=== PATIENT | female | born 1950 | race Caucasian/White ===

== ENCOUNTER → 2020-06-18 | Outpatient (CLI) | payer OTHER ==
[~2020-06-18] MED LIST: ASA81BEC PO; LOPRESSOR50 MG PO; TOPROL XL25 MG PO; TORSEMIDE20 MG PO; VITAMIN D325 MC5 PO; XARELTO20 MG PO
== END ==
LOC: SJCVCIMAG 09:40
PROVIDERS: ATTEND Internal Medicine Cardiovascular Disease
DX: R94.31 Abnormal electrocardiogram [ECG] [EKG] (principal); I08.1 Rheumatic disorders of both mitral and tricuspid valves; R00.0 Tachycardia, unspecified; I48.91 Unspecified atrial fibrillation; E78.5 Hyperlipidemia, unspecified; I42.9 Cardiomyopathy, unspecified; I10 Essential (primary) hypertension; Z79.82 Long term (current) use of aspirin; Z79.899 Other long term (current) drug therapy; E66.01 Morbid (severe) obesity due to excess calories

== ENCOUNTER → 2020-06-25 | Outpatient (CLI) | payer OTHER ==
[~2020-06-25] VITALS: Ht 170.2 cm; Wt 127.0 kg
[2020-06-25 07:12] VITALS: BP 116/77
--- NOTE | 2020-06-25 11:01 | TEE ---
[facility] [place] [address] TRANSESOPHAGEAL ECHOCARDIOGRAM Name: SHANTAL GOLDSTEIN Room #: REG [facility]#: [id number] Admission: 06/25/20 Attend Phys: Romain Naylor MD, Discharge: Date of : 50 Report #: [id number] THIS REPORT FOR: cc: Sidney Proctor James A. DO Santiago, Patrick MD [facility] ~ ADDENDUM APPROVED REPORT Study performed: 06/25/2020 07:44:12 EXAM: Comprehensive 2D, Doppler, and color-flow Echocardiogram Patient Location: Out-Patient Room #: 9 Status: routine BSA: 2.36 HR: 93 bpm BP: 109/72 mmHg Rhythm: Atrial Fibrillation Other Information Study Quality: Good Indications Atrial Fibrillation Echo Enhancing Agent Indication: Rule out Shunt Agent(s) / Amount(s) Used: Agitated Saline 7 cc Procedure After obtaining informed consent, patient underwent transesophageal echo in the [employer]. Type of Sedation : Conscious Sedation Sedation was administered by Belgica Bourne RN. Sedation start time: 754 Case end Time: 809 Sedation was achieved intravenously with: Versed (4.5 mg) Fentanyl (50 mcg) Transesophageal probe was inserted and advanced into esophagus without difficulty by Romain Naylor MD. Echo enhancement indication: R/O Septal defect. Echo enhancement agent administered: Agitated Saline The JERRI was performed without complications. Synchronized Cardioversion acheived with 150 Joules after 1 [facility] [address] [place] [address] TRANSESOPHAGEAL ECHOCARDIOGRAM Name: SHANTAL GOLDSTEIN Room #: REG [facility]#: [id number] Admission: 06/25/20 Attend Phys: Romain Naylor, Discharge: Date of : 50 Report #: [id number] attempt(s). Rhythm following Synchronized Cardioversion: Normal Sinus Rhythm Throughout the procedure, the blood pressure, pulse oximetry, cardiac rhythm, and rate were monitored. The patient tolerated the procedure without adverse effects. Recovery from conscious sedation was uneventful and vital signs were stable. Left Ventricle The left ventricle is normal size. There is global hypokinesis of the left ventricle. There is normal left ventricular wall thickness. Left ventricular ejection fraction is moderately decreased. LVEF is 30-35%. Right Ventricle The right ventricle is normal size. The right ventricular systolic function is normal. Atria Left atrium is dilated. No thrombus is visualized in the left atrium or appendage. Interatrial septum is intact without evidence of ASD or PFO. Right atrium is dilated. Aortic Valve The aortic valve is normal in structure. No aortic regurgitation is present. There is no aortic valvular stenosis. Mitral Valve The mitral valve is normal in structure. Mild mitral regurgitation. No evidence of mitral valve stenosis. Tricuspid Valve The tricuspid valve is normal in structure. Mild tricuspid regurgitation. Pulmonic Valve The pulmonary valve is normal in structure. There is no pulmonic valvular regurgitation. Great Vessels The aortic root is normal in size. Pericardium There is no pericardial effusion. <Conclusion> [facility] [place] [address] TRANSESOPHAGEAL ECHOCARDIOGRAM Name: SHANTAL GOLDSTEIN Room #: REG [facility]#: [id number] Admission: 06/25/20 Attend Phys: Romain Naylor, Discharge: Date of : 50 Report #: [id number] After appropriate sedation esophageal probe was advanced without difficulty Normal left ventricular size/wall thickness Global hypokinesis ejection fraction 30-35% Moderately dilated left atrium Mildly dilated right atrium Left atrial appendage small, no obvious clot or mass detected Color-flow Doppler study was performed of the aortic/mitral/tricuspid/pulmonary valve Tricuspid aortic valve, normal function Normal mitral valve structure Mild mitral valve insufficiency Mild tricuspid valve insufficiency No evidence of ASD/VSD by color flow/bubble study No pericardial effusion Patient was a successfully cardioverted to sinus rhythm after 150 J/ biphasic mode Patient tolerated procedure well Twelve-lead ECG pending <ELECTRONICALLY SIGNED> By: Romain Naylor MD, [facility] 06/25/201100 00 00 Romain Naylor MD, FACC /INF
--- NOTE | 2020-06-25 12:07 | EKG ---
[place] [address] [facility] [place] [address] ELECTROCARDIOGRAM REPORT Name: SHANTAL GOLDSTEIN Room #: REG [facility]#: [id number] Admission: 06/25/20 Attend Phys: Romain Naylor MD, Discharge: Date of : 50 Report #: [id number] [facility] Test Date: 2020-06-25 Test Time: 09:06:08 Pat Name: SHANTAL GOLDSTEIN Department: Room: Gender: F Chummer: JESSE : 1950 Requested By: Romain Naylor Order Number: [id number] MD: Romain Naylor Measurements Intervals [place] Rate: 57 P: 2 CA: 192 QRS: -31 QRSD: 123 T: 262 QT: 483 QTc: 471 Interpretive Statements Sinus rhythm Nonspecific intraventricular conduction delay Abnrm T, consider ischemia, anterolateral lds No previous ECG available for comparison Electronically Signed On 06-25-2020 12:07:40 CDT by Romain Naylor [email or web address] <ELECTRONICALLY SIGNED> By: Romain Naylor MD, [facility] 06/25/20 1207 09 5 Romain Naylor MD, FACC /EPI
== END | disposition home or self-care (01) ==
LOC: CATH 06:28
PROVIDERS: ATTEND Internal Medicine
DX: I48.91 Unspecified atrial fibrillation (principal); I08.1 Rheumatic disorders of both mitral and tricuspid valves; I49.9 Cardiac arrhythmia, unspecified; Z98.890 Other specified postprocedural states; Z79.899 Other long term (current) drug therapy; Z79.82 Long term (current) use of aspirin

== ENCOUNTER → 2020-07-04 | Outpatient (CLI) | payer OTHER | LOC: SJCVC 16:10 | PROVIDERS: ATTEND Internal Medicine Cardiovascular Disease | DX: I48.19 Other persistent atrial fibrillation (principal); I42.0 Dilated cardiomyopathy; E66.01 Morbid (severe) obesity due to excess calories; I48.91 Unspecified atrial fibrillation; Z91.048 Other nonmedicinal substance allergy status; Z79.82 Long term (current) use of aspirin; Z79.1 Long term (current) use of non-steroidal anti-inflammatories (NSAID); Z86.16 Personal history of COVID-19 ==

== ENCOUNTER → 2020-07-26 | Outpatient (CLI) | payer OTHER ==
[2020-07-26 10:24] LABS: ABSOLUTE NEUTROPHILS 4.2 thou/uL (1.4-8.2); BASOPHILS 1.3 % (0.0-2.0); EOSINOPHILS 5.7 % (0.0-3.0); HEMATOCRIT 33.5 % (37.0-47.0); HEMOGLOBIN 10.6 gm/dL (12.0-15.0); MCH 26.7 pg (26.0-34.0); MCHC 31.8 g/dL (28.0-37.0); MCV 83.8 fL (80.0-100.0); MONOCYTES 12.2 % (1.0-8.0); PLATELET COUNT 347 thou/uL (150-400); POLYS 54.8 % (36.0-66.0); RBC 3.99 mil/uL (4.20-5.00); RDW 18.4 % (10.5-14.5); WBC 7.7 thou/uL (4.0-11.0)
[2020-07-26 10:43] LABS: ALBUMIN 3.6 g/dL (3.4-5.0); CALCIUM 9.1 mg/dL (8.5-10.1); CREATININE 0.9 mg/dL (0.6-1.0); POTASSIUM 4.6 mmol/L (3.5-5.1); TOTAL BILIRUBIN 0.4 mg/dL (0.2-1.0); TOTAL PROTEIN 6.4 g/dL (6.4-8.2)
[2020-07-26 11:43] LABS: ANISOCYTOSIS 2+; OVALOCYTES 1+; PLATELET ESTIMATE NORMAL
== END ==
LOC: CAT 09:47
PROVIDERS: ATTEND Internal Medicine Cardiovascular Disease
DX: I48.91 Unspecified atrial fibrillation (principal); K80.20 Calculus of gallbladder without cholecystitis without obstruction

== ENCOUNTER 2020-07-31 06:34 | Observation (INO) | payer OTHER ==
[2020-07-31] VITALS (11 sets, daily range): BP systolic 99–123; BP diastolic 61–75
[~2020-07-31] VITALS: Ht 170.2 cm; Wt 124.7 kg
[2020-07-31 07:37] LABS: BASOPHILS 0.6 % (0.0-2.0); EOSINOPHILS 4.7 % (0.0-3.0); HEMATOCRIT 34.8 % (37.0-47.0); HEMOGLOBIN 11.1 gm/dL (12.0-15.0); MCH 26.4 pg (26.0-34.0); MCHC 31.8 g/dL (28.0-37.0); MCV 83.1 fL (80.0-100.0); MONOCYTES 10.4 % (1.0-8.0); PLATELET COUNT 365 thou/uL (150-400); POLYS 58.3 % (36.0-66.0); RBC 4.19 mil/uL (4.20-5.00); RDW 18.5 % (10.5-14.5); WBC 8.5 thou/uL (4.0-11.0)
[2020-07-31] MEDS ORDERED: IBUPROFEN200 M1 PO (07:39)
[2020-07-31 07:48] LABS: POTASSIUM 4.3 mmol/L (3.5-5.1)
[2020-07-31 07:51] LABS: APTT 25.9 Seconds (24.5-32.8); INR 0.99; PROTIME 10.8 Seconds (10.5-12.1)
[2020-07-31 07:56] LABS: ALBUMIN 3.8 g/dL (3.4-5.0); TOTAL BILIRUBIN 0.5 mg/dL (0.2-1.0); TOTAL PROTEIN 6.8 g/dL (6.4-8.2)
[2020-07-31 10:55] LABS: ANISOCYTOSIS 1+; POIKILOCYTOSIS SLIGHT
[2020-07-31 10:56] LABS: OVALOCYTES FEW
--- NOTE | 2020-07-31 20:34 | NUR ---
RECEIVED PT FROM THE ALTERATION MANAGER. PT IS AXOX4, PLEASANT, DENIES PAIN. VSS, AFEBRILE, SR ON THE MONITOR. PT HAD CARDIAC CATH WITH CARDIOVERSION. ADMISSION COMPLETED. PT IS UP X1 STDBY TO VOID, PT HAS ARTHRITIS IN R KNEE. LOW FALL PRECAUTIONS IN PLACE. POC TO CONTINUE TO MONITOR CATH SITE. PLAN FOR POSS D/C TOMORROW 08/01/20. NO CONCERNS AT THIS TIME.
[2020-08-01 00:26] VITALS: BP 123/67
--- NOTE | 2020-08-01 03:55 | NUR ---
ASSUME CARE 1900. PT/VITALS STABLE. DENIES ANY PAIN. GOOD TOLERANCE TO ACTIVITY. UP AD VASHTI. ASSESSMENT CHARTED. PROGRESSING WELL WITH POC. SR ON MONITOR WITH CONTROLLED RATE NOTED. NO DISTRESS NOTED THROUGH THE NIGHT. PLAN IS POSSIBLE DISCHARGE TODAY. WILL CONTINUE TO MONITOR AND FOLLOW WITH POC
[2020-08-01 05:43] VITALS: BP 119/74
[2020-08-01 07:36] VITALS: BP 110/56
[2020-08-01 07:45] VITALS: BP 110/56
[2020-08-01] MEDS ORDERED: PACERONE 200 M200 M1 PO ×2 (07:47→08:35)
[2020-08-01 10:03] VITALS: BP 110/56
--- NOTE | 2020-08-01 10:21 | NUR ---
PT CARE ASSUMED AT 0700. ASSESSMENTS CHARTED. MEDICATIONS CHARTED. RAC IV. SINUS RHYTHM. REGULAR DIET. PT DISCHARGED TO HOME. DISCHARGE PAPERWORK SIGNED. TELEMETRY D/C'D. IV D/C'D.
--- NOTE | 2020-08-19 10:55 | P ---
[facility] [place] [address] PROCEDURE REPORT Name: SHANTAL GOLDSTEIN Room #: 209-P [facility] Nando Martinez#: [id number] Admission: 07/31/20 Attend Phys: Paul Ray MD Discharge: 08/01/20 Date of : 50 Report #: [id number] THIS REPORT FOR: cc: Sidney Proctor James A. DO Couchonnal, Luis F. MD ~ DOC #: [id number] Paul Ray MD DATE OF SERVICE: 07/31/2020 PREOPERATIVE DIAGNOSIS: Atrial fibrillation/atrial flutter. POSTOPERATIVE DIAGNOSIS: Atrial fibrillation/atrial flutter. PROCEDURE PERFORMED: 1. Atrial fibrillation ablation, CPT code 99764. 2. 3D mapping, CPT code 39260. 3. Intracardiac echo, CPT code 48714. 4. Focal ablation, CPT code 13870. INDICATIONS FOR PROCEDURE: The patient is a 70-year-old female with a history of recurrent AFib, here for ablation. ANESTHESIA: The patient underwent general anesthesia. No anesthesia related complications. INDICATION FOR PROCEDURE: The patient underwent informed consent. We discussed the details of the procedure including the risks, which include but not limited to bleeding, vascular damage, stroke, AR as well as cardiac perforation. She understood these risks and is willing to proceed. DESCRIPTION OF PROCEDURE: The patient was brought to the EP laboratory in a fasting and sedated state, prepped and draped in a sterile fashion. I obtained access to the right femoral vein x 3, placing a 8, 9, and 7-Mohawk short sheath using the modified Seldinger technique. Next, under fluoroscopy, I placed a decapolar catheter and ICE catheter into the right atrium. At baseline, the patient was in atrial fibrillation. Using intracardiac ultrasound, I created a 3D geometry of the left atrium with evidence of two left and two right pulmonary veins. This was merged with the cardiac CT scan. The patient was systemically heparinized and underwent a transseptal with an SL1 sheath and a [place] needle, which was straightforward and I exchanged for the cryosheath and placed the Lasso catheter in the left atrium. Using the Lasso catheter, I created a detailed 3D geometry of the left atrium. Next, we started by isolating the pulmonary veins. The left superior pulmonary vein underwent two 4-minute freezes with isolation of the pulmonary vein. The left inferior pulmonary vein underwent 4-minute followed by 3-minute, followed by a 4-minute freeze which did [address] [address] PROCEDURE REPORT Name: SHANTAL GOLDSTEIN Room #: 209-P [facility]..#: [id number] Admission: 07/31/20 Attend Phys: Paul Ray MD Discharge: 08/01/20 Date of : 50 Report #: [id number] not result in isolation. I then performed a secondary 80-second freeze which resulted in isolation. The right superior pulmonary vein underwent a 4-minute freeze isolating the vein at 20 seconds. The right inferior pulmonary vein was a very challenging. This had multiple branches. I performed multiple short freezes, came off due to poor attempts and then performed two 4-minute freezes which eventually resulted in isolation of the pulmonary veins. Again, both the right inferior and left inferior pulmonary veins were very challenging to isolate using cryo but eventually this was achieved. Once the veins were isolated, I decided to perform posterior wall roof isolation. I performed 3 freezes, each of 3 minutes' duration and anchored from the left superior pulmonary vein. Post-ablation, a repeat voltage map was created and there was evidence of isolation of all pulmonary veins as well as the posterior roof region. The patient then underwent 200 joule synchronized cardioversion with rastafarian of sinus rhythm. Using intracardiac ultrasound, there was no evidence of pericardial effusion. The patient then received systemic protamine and once the ACT was within acceptable range, catheters and sheaths were pulled and hemostasis obtained. The patient awoke neurologically and hemodynamically intact. No complications and no significant bleeding. CONCLUSIONS: 1. Successful AFib ablation with isolation of the pulmonary veins. 2. Successful posterior roof isolation. Paul Ray MD [facility] <ELECTRONICALLY SIGNED> By: Paul Ray MD 08/19/20 1055 1030 15 Paul Ray MD /nt
== END 2020-08-01 11:13 | disposition home or self-care (01) ==
LOC: CATH 06:34 → 2N 13:32
PROVIDERS: ADMIT Internal Medicine Cardiovascular Disease; ATTEND Internal Medicine Cardiovascular Disease
DX: I48.91 Unspecified atrial fibrillation (principal); Z20.822 Contact with and (suspected) exposure to COVID-19; E78.5 Hyperlipidemia, unspecified; I42.9 Cardiomyopathy, unspecified; E66.9 Obesity, unspecified; Z68.41 Body mass index [BMI] 40.0-44.9, adult; Z91.048 Other nonmedicinal substance allergy status; Z79.82 Long term (current) use of aspirin; Z79.899 Other long term (current) drug therapy; Z90.49 Acquired absence of other specified parts of digestive tract
CPT/HCPCS: 62110; 62900; 70005

== ENCOUNTER → 2021-02-04 | Outpatient (CLI) | payer OTHER ==
[~2021-02-04] MED LIST changes: +IBUPROFEN200 M1 PO; +PACERONE 200 M200 M1 PO
== END ==
LOC: SJCVC 15:52
PROVIDERS: ATTEND Internal Medicine Cardiovascular Disease
DX: R94.31 Abnormal electrocardiogram [ECG] [EKG] (principal); I45.9 Conduction disorder, unspecified; I48.19 Other persistent atrial fibrillation; I42.0 Dilated cardiomyopathy; E66.01 Morbid (severe) obesity due to excess calories; R06.00 Dyspnea, unspecified; Z88.8 Allergy status to other drugs, medicaments and biological substances; Z79.82 Long term (current) use of aspirin; Z79.899 Other long term (current) drug therapy; Z86.16 Personal history of COVID-19

== ENCOUNTER → 2021-02-24 | Outpatient (CLI) | payer OTHER | LOC: SJCVCIMAG 08:41 | PROVIDERS: ATTEND Internal Medicine Cardiovascular Disease | DX: I07.1 Rheumatic tricuspid insufficiency (principal); I48.91 Unspecified atrial fibrillation; I27.20 Pulmonary hypertension, unspecified; R06.00 Dyspnea, unspecified ==

== ENCOUNTER 2021-03-15 15:17 | Emergency (ER) | payer OTHER ==
[~2021-03-15] VITALS: Ht 170.2 cm; Wt 113.4 kg
[2021-03-15 16:23] LABS: ABSOLUTE NEUTROPHILS 2.1 thou/uL (1.4-8.2); BASOPHILS 0.5 % (0.0-2.0); EOSINOPHILS 1.8 % (0.0-3.0); HEMATOCRIT 35.5 % (37.0-47.0); HEMOGLOBIN 11.3 gm/dL (12.0-15.0); LYMPHOCYTES 29.9 % (24.0-44.0); MCH 26.5 pg (26.0-34.0); MCHC 31.7 g/dL (28.0-37.0); MCV 83.7 fL (80.0-100.0); MONOCYTES 8.8 % (1.0-8.0); PLATELET COUNT 340 thou/uL (150-400); RBC 4.24 mil/uL (4.20-5.00); RDW 15.6 % (10.5-14.5); WBC 3.5 thou/uL (4.0-11.0)
[2021-03-15 16:40] LABS: CALCIUM 8.5 mg/dL (8.5-10.1); CREATININE 0.8 mg/dL (0.6-1.0)
[2021-03-15 16:50] LABS: ALBUMIN 3.3 g/dL (3.4-5.0); MAGNESIUM 1.8 mg/dL (1.8-2.4); TOTAL BILIRUBIN 0.3 mg/dL (0.2-1.0); TOTAL PROTEIN 6.3 g/dL (6.4-8.2)
[2021-03-15 17:00] VITALS: BP 107/61
--- NOTE | 2021-03-16 12:30 | EKG ---
[place] [address] [place] [address] ELECTROCARDIOGRAM REPORT Name: SHANTAL GOLDSTEIN [facility] [id number] Admission: 03/15/21 Attend Phys: Discharge: 03/15/21 Date of : 50 Report #: [id number] [facility] ED Test Date: 2021-03-15 Test Time: 15:26:24 Pat Name: SHANTAL GOLDSTEIN Department: Room: Gender: F [employer]: FLORA : 1950 Requested By: Amanda Mortensen Order Number: [id number] MD: Fredy Abrams Measurements Intervals [place] Rate: 87 P: -20 UT: 147 QRS: -33 QRSD: 107 T: 66 QT: 358 QTc: 431 Interpretive Statements Sinus rhythm Left axis deviation Borderline T wave abnormalities Compared to ECG 06/25/2020 09:06:08 Left-axis deviation now present T-wave abnormality now present Intraventricular conduction delay no longer present Possible ischemia no longer present Electronically Signed On 03-16-2021 12:30:08 [employer] by Fredy Abrams [email or web address] <ELECTRONICALLY SIGNED> By: Fredy Abrams MD 03/16/21 1230 1526 1526 Fredy Abrams MD /SARWAT
== END 2021-03-15 17:16 | disposition home or self-care (01) ==
LOC: ER 15:17
PROVIDERS: Emergency Medicine
DX: R00.2 Palpitations (principal); E66.9 Obesity, unspecified; Z79.899 Other long term (current) drug therapy; Z88.8 Allergy status to other drugs, medicaments and biological substances

== ENCOUNTER → 2021-04-16 | Outpatient (CLI) | payer OTHER ==
[~2021-04-16] MED LIST changes: +ALEVE220 MG PO; +PEPCID COMPLET1 EACH PO; +VOLTAREN ARTHRI20 GM TOP
[2021-04-16 14:21] LABS: HEMATOCRIT 34.7 % (37.0-47.0); HEMOGLOBIN 10.9 gm/dL (12.0-15.0); MCH 26.1 pg (26.0-34.0); MCHC 31.3 g/dL (28.0-37.0); MCV 83.6 fL (80.0-100.0); RBC 4.15 mil/uL (4.20-5.00); RDW 16.3 % (10.5-14.5); WBC 5.9 thou/uL (4.0-11.0)
[2021-04-16 14:27] LABS: ALBUMIN 4.2 g/dL (3.4-5.0); CALCIUM 9.4 mg/dL (8.5-10.1); CREATININE 0.8 mg/dL (0.6-1.0); POTASSIUM 3.8 mmol/L (3.5-5.1)
[2021-04-16 14:35] LABS: URINE BILIRUBIN NEGATIVE (Negative); URINE BLOOD NEGATIVE (Negative); URINE CLARITY CLEAR; URINE COLOR YELLOW; URINE GLUCOSE-RANDOM* NEGATIVE (Negative); URINE KETONES NEGATIVE (Negative); URINE LEUKOCYTES-REFLEX NEGATIVE (Negative); URINE NITRITE-REFLEX NEGATIVE (Negative); URINE PROTEIN (DIPSTICK) NEGATIVE (Negative); URINE SPECIFIC GRAVITY >= 1.030 (1.005-1.035); URINE UROBILINOGEN 0.2 E.U./dl (0.2-1.0)
[2021-04-16 14:53] LABS: PROTIME 10.9 Seconds (10.5-12.1)
== END ==
LOC: PAC 09:18
PROVIDERS: ATTEND Orthopaedic Surgery
DX: Z01.812 Encounter for preprocedural laboratory examination (principal); M17.12 Unilateral primary osteoarthritis, left knee